=== PATIENT | female | born 1955 | race Caucasian/White ===

== ENCOUNTER 2022-04-01 13:28 | Outpatient (RCR) | payer BC, OTHER ==
[2022-04-01 14:58] LABS: BASOPHILS # (AUTO) 0.1 10^3/uL (0.0-0.1); BASOPHILS % (AUTO) 1 % (0-10); HEMOGLOBIN 14.7 g/dL (11.5-16.0)
[2022-04-01 15:00] LABS: EOSINOPHILS # (AUTO) 0.1 10^3/uL (0.0-0.3); EOSINOPHILS % (AUTO) 1 % (0-10); HEMATOCRIT 45 % (35-52); LYMPHOCYTES # (AUTO) 2.1 10^3/uL (1.0-4.0); LYMPHOCYTES % (AUTO) 26 % (12-44); MEAN CORPUSCULAR HEMOGLOBIN 26 pg (25-34); MEAN CORPUSCULAR HGB CONC 33 g/dL (32-36); MEAN CORPUSCULAR VOLUME 81 fL (80-99); MEAN PLATELET VOLUME 10.5 fL (9.0-12.2); MONOCYTES # (AUTO) 0.8 10^3/uL (0.0-1.0); MONOCYTES % (AUTO) 10 % (0-12); NEUTROPHILS % (AUTO) 63 % (42-75); PLATELET COUNT 257 10^3/uL (130-400); WHITE BLOOD COUNT 7.9 10^3/uL (4.3-11.0)
[2022-04-01 15:14] LABS: ALBUMIN 4.3 GM/DL (3.2-4.5); POTASSIUM 4.6 MMOL/L (3.6-5.0)
[2022-04-01 15:15] LABS: CALCIUM 9.9 MG/DL (8.5-10.1)
[2022-04-01 15:16] LABS: TOTAL PROTEIN 6.8 GM/DL (6.4-8.2)
[2022-04-01 15:17] LABS: SMEAR SCAN COMMENT YES
[2022-04-01 15:18] LABS: BILIRUBIN,TOTAL 0.5 MG/DL (0.1-1.0)
[2022-04-01 15:20] LABS: CREATININE SERUM 0.88 MG/DL (0.60-1.30)
== END 2022-04-07 08:59 | disposition home or self-care (01) ==
LOC: ONC 13:28
PROVIDERS: ATTEND Internal Medicine Hematology & Oncology
DX: C91.10 Chronic lymphocytic leukemia of B-cell type not having achieved remission (principal); E66.9 Obesity, unspecified; I10 Essential (primary) hypertension; E11.9 Type 2 diabetes mellitus without complications
CPT/HCPCS: 80053; 82784; 83615; 85025; 99204